=== PATIENT | female | born 1945 | race African-American/Black ===

== ENCOUNTER 2016-10-09 13:41 | Emergency (ER) | payer OTHER ==
[~2016-10-09] VITALS: Ht 162.6 cm; Wt 76.0 kg
[2016-10-09 14:10] VITALS: BP 130/67
[2016-10-09] MEDS ORDERED: DIAZEPAM 5 MG TABLET PO ONE (15:00)
[2016-10-09] MEDS ORDERED: KETOROLAC 60MG/2ML VIAL IM ONE (15:00)
== END 2016-10-09 18:01 | disposition home or self-care (01) ==
LOC: ER 13:56
DX: S30.0XXA Contusion of lower back and pelvis, initial encounter (principal); S80.01XA Contusion of right knee, initial encounter; S40.011A Contusion of right shoulder, initial encounter; E11.9 Type 2 diabetes mellitus without complications; I10 Essential (primary) hypertension; E78.00 Pure hypercholesterolemia, unspecified; C80.1 Malignant (primary) neoplasm, unspecified; Z90.49 Acquired absence of other specified parts of digestive tract; Z90.10 Acquired absence of unspecified breast and nipple; W01.0XXA Fall on same level from slipping, tripping and stumbling without subsequent striking against object, initial encounter; Y93.89 Activity, other specified; Y99.8 Other external cause status; Y92.89 Other specified places as the place of occurrence of the external cause
CPT/HCPCS: 72100; 72170; 96372; 99284; J1885; 99283